=== PATIENT | female | born 1945 | race Caucasian/White ===

== ENCOUNTER 2024-03-27 16:14 | Inpatient (IN) | payer MEDICARE, OTHER ==
[~2024-03-27] VITALS: Ht 160 cm; Wt 63.5 kg
[2024-03-27 17:20] LABS: BASOPHILS % (AUTO) 0.7 % (0.0-2.0); EOSINOPHILS # (AUTO) 0.1 K/uL (0.0-0.7); EOSINOPHILS % (AUTO) 1.3 % (0.0-7.0); HEMOGLOBIN 12.8 g/dL (10.9-14.3); LYMPHOCYTES # (AUTO) 0.8 K/uL (0.8-4.8); LYMPHOCYTES % (AUTO) 12.1 % (20.5-51.5); MEAN CORPUSCULAR HEMOGLOBIN 30.4 uug (24.7-32.8); MEAN CORPUSCULAR HGB CONC 35 g/dL (32.3-35.6); MEAN CORPUSCULAR VOLUME 88.1 fL (75.5-95.3); MONOCYTES # (AUTO) 0.7 K/uL (0.1-1.30); MONOCYTES % (AUTO) 10.4 % (0.0-11.0); NEUTROPHILS # (AUTO) 5.2 K/uL (1.8-8.9); NEUTROPHILS % (AUTO) 75.5 % (38.5-71.5); PLATELET COUNT (AUTO) 295 K/uL (179-408); RED BLOOD CELL COUNT(AUTO) 4.21 MIL/uL (3.63-4.92); RED CELL DISTRIBUTION WIDTH 13.6 % (12.3-17.7); WHITE BLOOD COUNT (AUTO) 6.9 K/uL (3.8-11.8)
[2024-03-27 17:24] LABS: DIFFERENTIAL COMMENT 1
[2024-03-27 17:40] LABS: CALCIUM 8.7 mg/dL (8.5-10.1); CARBON DIOXIDE 28 mmol/L (21-32); CHLORIDE 102 mmol/L (98-107); GLUCOSE 105 mg/dL (74-106); POTASSIUM 4.6 mmol/L (3.5-5.1); SODIUM SERUM 139 mmol/L (136-145); UREA NITROGEN, BLOOD 18 mg/dL (7-18)
[2024-03-27 17:57] LABS: ALANINE AMINOTRANSFERASE 24 U/L (14-59); ALBUMIN 3.4 g/dL (3.4-5.0); ALKALINE PHOSPHATASE 106 U/L (50-136); ASPARTATE AMINOTRANSFERASE 19 U/L (15-37); BILIRUBIN,DIRECT 0.2 mg/dL (0.0-0.2); BILIRUBIN,TOTAL 0.5 mg/dL (0.2-1.0); NT-PRO BNP 315 pg/mL (0-125); TOTAL PROTEIN, SERUM 6.8 g/dL (6.4-8.2)
[2024-03-27] MEDS ORDERED: hydrALAZINE HCL 20 MG/1 ML VIAL IV PRN (18:00)
[2024-03-27] MEDS ORDERED: ONDANSETRON 4 MG/2 ML VIAL IV PRN (18:00)
[2024-03-27] MEDS ORDERED: ACETAMINOPHEN 325 MG TABLET PO PRN (18:00)
[2024-03-27] MEDS ORDERED: ALBUTEROL SULFATE 8 GM HFA.AER.AD IH PRN (18:00)
[2024-03-27] MEDS ORDERED: MORPHINE SULFATE 2 MG/1 ML DISP.SYRIN IVP PRN (18:00)
[2024-03-27] MEDS ORDERED: CEFTRIAXONE /D5W 50ML IVPB **ER PYXIS IV ONE (18:05)
[2024-03-27] MEDS ORDERED: AZITHROMYCIN 250 MG TABLET ONE (18:05)
[2024-03-27] MEDS: IV NS 1000 ML 1,000 ML IV SCH (18:20)
[2024-03-27] MEDS: CEFTRIAXONE 1 G in IV DEXTROSE 5% 50 ML IV ONE (18:21)
[2024-03-27] MEDS: AZITHROMYCIN 250 MG TABLET PO ONE (18:21)
[2024-03-27 22:00] VITALS: BP 123/83; TEMP 98.2; O2SAT 97
[2024-03-27] MEDS: GUAIFENESIN/DEXTROMETHORPHAN 5 ML UDC PO PRN (23:48)
[2024-03-28 04:08] VITALS: BP 111/70; TEMP 100.3; O2SAT 94
[2024-03-28 05:03] VITALS: BP 111/70; TEMP 99.2; O2SAT 95
[2024-03-28 06:46] LABS: BASOPHILS % (AUTO) 0.7 % (0.0-2.0); EOSINOPHILS % (AUTO) 0.7 % (0.0-7.0); HEMATOCRIT 35.1 % (31.2-41.9); HEMOGLOBIN 12.4 g/dL (10.9-14.3); LYMPHOCYTES % (AUTO) 16.8 % (20.5-51.5); MEAN CORPUSCULAR HEMOGLOBIN 30.6 uug (24.7-32.8); MEAN CORPUSCULAR HGB CONC 35 g/dL (32.3-35.6); MEAN CORPUSCULAR VOLUME 86.4 fL (75.5-95.3); MONOCYTES # (AUTO) 0.7 K/uL (0.1-1.30); MONOCYTES % (AUTO) 11.2 % (0.0-11.0); NEUTROPHILS # (AUTO) 4.2 K/uL (1.8-8.9); NEUTROPHILS % (AUTO) 70.6 % (38.5-71.5); PLATELET COUNT (AUTO) 251 K/uL (179-408); RED BLOOD CELL COUNT(AUTO) 4.06 MIL/uL (3.63-4.92)
[2024-03-28 06:59] LABS: ALANINE AMINOTRANSFERASE 21 U/L (14-59); ALBUMIN 3.3 g/dL (3.4-5.0); ALKALINE PHOSPHATASE 97 U/L (50-136); ASPARTATE AMINOTRANSFERASE 19 U/L (15-37); BILIRUBIN,TOTAL 0.5 mg/dL (0.2-1.0); CALCIUM 8.4 mg/dL (8.5-10.1); CARBON DIOXIDE 25 mmol/L (21-32); CHLORIDE 100 mmol/L (98-107); CREATININE 0.8 mg/dL (0.6-1.3); GLUCOSE 109 mg/dL (74-106); PHOSPHOROUS 2.5 mg/dL (2.5-4.9); POTASSIUM 3.8 mmol/L (3.5-5.1); SODIUM SERUM 132 mmol/L (136-145); TOTAL PROTEIN, SERUM 6.3 g/dL (6.4-8.2); UREA NITROGEN, BLOOD 14 mg/dL (7-18)
[2024-03-28 07:22] LABS: DIFFERENTIAL COMMENT 1
[2024-03-28] MEDS: FLUTICASONE/VILANTEROL 1 EACH BLST.W.DEV INH SCH (08:22)
[2024-03-28] MEDS: DOCUSATE SODIUM 100 MG CAPSULE PO SCH (08:22)
[2024-03-28] MEDS: HEPARIN SODIUM,PORCINE 5,000 UNITS/ML VIAL SQ SCH (08:26)
[2024-03-28] MEDS ORDERED: GUAI10LI12 PO (10:31)
[2024-03-28] MEDS ORDERED: BENZ1LOZ58 MM (10:31)
[2024-03-28] MEDS ORDERED: LORA-259 PO ×2 (10:31)
[2024-03-28] MEDS ORDERED: BISA10SU61 RC (10:31)
[2024-03-28] MEDS ORDERED: METO25TA6 PO (10:31)
[2024-03-28] MEDS ORDERED: IPRA3AMP23 IH (10:31)
[2024-03-28] MEDS ORDERED: HYDR-4209 PO (10:31)
[2024-03-28] MEDS ORDERED: BICT1TAB PO (10:31)
[2024-03-28] MEDS ORDERED: ONDA4TAB5 PO (10:31)
[2024-03-28] MEDS ORDERED: APIX5TAB PO (10:31)
[2024-03-28] MEDS ORDERED: ACET650S13 RC (10:31)
[2024-03-28] MEDS ORDERED: LEVO500T90 PO (10:31)
[2024-03-28] MEDS ORDERED: HYOS-15 PO (10:31)
[2024-03-28] MEDS ORDERED: LORAZEPAM 1 MG TABLET PO PRN (12:15)
[2024-03-28] MEDS ORDERED: GUAIFENESIN/D-METHORPHAN 10 ML UDC (DIABETIC FORMULA) PO PRN (12:15)
[2024-03-28] MEDS: APIXABAN 5 MG TABLET PO SCH (12:48)
[2024-03-28 19:40] VITALS: BP 145/77; TEMP 99.3; O2SAT 96
[2024-03-28] MEDS: MELATONIN 3 MG TABLET PO SCH (20:39)
[2024-03-29] MEDS ORDERED: IV NS 1000 ML 1,000 ML IV PRN (05:00)
[2024-03-29 05:06] VITALS: BP 117/52; TEMP 98.8; O2SAT 94
[2024-03-29] MEDS ORDERED: ALBUTEROL SULFATE 2.5 MG/3 ML NEBU NEB PRN (05:15)
[2024-03-29] MEDS: METOPROLOL TARTRATE 25 MG TABLET PO SCH (09:00)
[2024-03-29] MEDS ORDERED: METOPROLOL TARTRATE 25 MG TABLET PO SCH (09:00)
[2024-03-29] MEDS: EMTRICITABINE PO SCH (09:59)
[2024-03-29] MEDS: BICTEGRAVIR PO SCH (09:59)
[2024-03-29] MEDS: [UNRECOGNIZED DRUG - OTHER] PO SCH (09:59)
[2024-03-29] MEDS: TENOFOVIR ALAFENAMIDE PO SCH (09:59)
[2024-03-29 11:33] VITALS: BP 113/69; TEMP 99.1; O2SAT 97
[2024-03-29 15:45] VITALS: BP 117/69; TEMP 98.6; O2SAT 94
[2024-03-29 19:05] VITALS: BP 122/62; TEMP 98.3; O2SAT 95
[2024-03-29] MEDS: MELATONIN 3 MG TABLET PO SCH (21:12)
[2024-03-30 06:02] VITALS: BP 127/68; TEMP 98.4; O2SAT 95
[2024-03-30 12:12] VITALS: BP 110/63; TEMP 98.3; O2SAT 98
== END 2024-03-30 13:00 | DRG 202 ==
LOC: ER 16:14 → MEDSURG3 18:00
PROVIDERS: ADMIT Internal Medicine; ATTEND Internal Medicine
DX: J40 Bronchitis, not specified as acute or chronic (principal); G93.40 Encephalopathy, unspecified; F03.90 Unspecified dementia, unspecified severity, without behavioral disturbance, psychotic disturbance, mood disturbance, and anxiety; I25.10 Atherosclerotic heart disease of native coronary artery without angina pectoris; E78.5 Hyperlipidemia, unspecified; Z66 Do not resuscitate; Z87.01 Personal history of pneumonia (recurrent); Z79.01 Long term (current) use of anticoagulants; Z86.711 Personal history of pulmonary embolism
CPT/HCPCS: 36415; 71045; 83605; 84100; 85025; 85730; 86403; 87040; 87070; A4663; G0378; J0696; J1644; J7040; Q0144